=== PATIENT | male | born 1980 | race Caucasian/White ===

== ENCOUNTER 2021-03-08 09:15 | Emergency (ER) | payer MEDICAID ==
[~2021-03-08] VITALS: Ht 182.9 cm; Wt 109.1 kg
[~2021-03-08 09:15] MED LIST: HYDR-4383 PO
[2021-03-08 09:24] VITALS: BP 143/95
[2021-03-08] MEDS ORDERED: piperacillin/tazo 3.375gm/50ml 50 ML IV ONE (09:30)
[2021-03-08 10:39] LABS: BASOPHILS % (AUTO) 0.2 % (0-1); EOSINOPHILS % (AUTO) 0.2 % (0-6); HEMATOCRIT 38.1 % (42.0-52.0); LYMPHOCYTES # (AUTO) 0.6 X10'3 (1.1-4.8); LYMPHOCYTES % (AUTO) 4.9 % (21-51); MEAN CORPUSCULAR HEMOGLOBIN 29.5 PG (27.0-31.0); MEAN CORPUSCULAR VOLUME 86.6 FL (78-98); MEAN PLATELET VOLUME 7.6 FL (7.4-10.4); MONOCYTES # (AUTO) 0.8 X10'3 (0-0.9); MONOCYTES % (AUTO) 5.9 % (2-12); NEUTROPHILS # (AUTO) 11.8 X10'3 (1.8-7.7); NEUTROPHILS % (AUTO) 88.8 % (42-75); PLATELET COUNT 149 X10'3 (140-440); RED CELL DISTRIBUTION WIDTH 13.8 % (11.5-14.5); WHITE BLOOD COUNT 13.3 X10'3 (4.5-11.0)
[2021-03-08 10:53] LABS: ALANINE AMINOTRANSFERASE 36 U/L (12-78); ALBUMIN 2.4 G/DL (3.4-5.0); ALBUMIN/GLOBULIN RATIO 0.6 (1.1-1.5); ALKALINE PHOSPHATASE 137 IU/L (46-116); ANION GAP 12 (8-16); ASPARTATE AMINO TRANSFERASE 37 U/L (10-37); BILIRUBIN,TOTAL 0.8 MG/DL (0.1-1.0); BLOOD UREA NITROGEN 10 MG/DL (7-18); CALCIUM 8.2 MG/DL (8.5-10.1); CHLORIDE 100 MMOL/L (99-107); CREATININE 0.83 MG/DL (0.60-1.10); GLUCOSE 201 MG/DL (70-104); POTASSIUM 3.2 MMOL/L (3.5-5.1); SODIUM 136 MMOL/L (135-145); TOTAL CARBON DIOXIDE 23.9 MMOL/L (24-32); TOTAL PROTEIN 6.7 G/DL (6.4-8.2); eGFR > 90 ML/MIN
--- NOTE | 2021-03-08 11:00 | NUR ---
Pt is awake and alert. C/O reddness, edema, and severe pain to [place] GUO. Seen at [facility] 2 days ago and pt left AMA.
[2021-03-08] MEDS ORDERED: levoFLOXACIN 250mg tablet PO ONE (11:35)
[2021-03-08] MEDS ORDERED: LEVO500T89 PO (11:36)
[2021-03-08] MEDS ORDERED: HYDROcodone/acetaminophen 10/325mg tab PO ONE (11:45)
[2021-03-08] MEDS ORDERED: TETanus/Pertussis (Acell)/Diphther VAC/PF (Tdap-Adult) 0.5ml syringe IMVAC ONE (12:30)
== END 2021-03-08 12:36 | disposition home or self-care (01) ==
LOC: ER 09:16
DX: L03.116 Cellulitis of left lower limb (principal); F15.10 Other stimulant abuse, uncomplicated; I10 Essential (primary) hypertension; K21.9 Gastro-esophageal reflux disease without esophagitis; Z88.5 Allergy status to narcotic agent; Z88.8 Allergy status to other drugs, medicaments and biological substances
CPT/HCPCS: 36415; 80053; 83605; 84145; 85025; 87040; 90471; 90715; 96365; 99284; J2543

== ENCOUNTER → 2021-03-13 | Emergency (ER) | payer MEDICAID ==
[~2021-03-13] VITALS: Ht 182.9 cm; Wt 109.1 kg
[~2021-03-13] MED LIST changes: +LEVO500T89 PO
== END | disposition left against medical advice (07) ==
LOC: ER 21:23
DX: M79.662 Pain in left lower leg (principal); Z53.21 Procedure and treatment not carried out due to patient leaving prior to being seen by health care provider

== ENCOUNTER 2021-04-21 00:38 | Emergency (ER) | payer MEDICAID ==
[~2021-04-21] VITALS: Ht 182.9 cm; Wt 111.8 kg
[~2021-04-21 00:38] MED LIST changes: -LEVO500T89 PO
[2021-04-21] MEDS ORDERED: insulin regular, human 10 units/0.1 ml syringe IV ONE (01:00)
[2021-04-21] MEDS ORDERED: insulin regular, human 10 units/0.1 ml syringe SQ ONE (01:00)
[2021-04-21] MEDS ORDERED: normal saline 1000ML IV soln IVB ONE (01:00)
[2021-04-21 01:40] LABS: BASOPHILS # (AUTO) 0.1 X10'3 (0-0.2); BASOPHILS % (AUTO) 0.6 % (0-1); EOSINOPHILS # (AUTO) 0.1 X10'3 (0-0.9); EOSINOPHILS % (AUTO) 1.4 % (0-6); HEMATOCRIT 45.1 % (42.0-52.0); HEMOGLOBIN 15.2 g/dl (14.0-17.9); LYMPHOCYTES # (AUTO) 2.2 X10'3 (1.1-4.8); LYMPHOCYTES % (AUTO) 23.9 % (21-51); MEAN CORPUSCULAR HEMOGLOBIN 28.7 PG (27.0-31.0); MEAN CORPUSCULAR HGB CONC 33.7 g/dL (33.0-36.5); MONOCYTES # (AUTO) 0.5 X10'3 (0-0.9); MONOCYTES % (AUTO) 4.9 % (2-12); NEUTROPHILS # (AUTO) 6.4 X10'3 (1.8-7.7); NEUTROPHILS % (AUTO) 69.2 % (42-75); PLATELET COUNT 206 X10'3 (140-440); RED BLOOD COUNT 5.31 X10'6 (4.70-6.10); WHITE BLOOD COUNT 9.2 X10'3 (4.5-11.0)
[2021-04-21 01:55] LABS: HEMOGLOBIN A1C 10.1 % (4.5-6.2)
[2021-04-21 01:56] LABS: ALANINE AMINOTRANSFERASE 27 U/L (12-78); ALBUMIN 3.9 G/DL (3.4-5.0); ALBUMIN/GLOBULIN RATIO 0.9 (1.1-1.5); ALKALINE PHOSPHATASE 92 IU/L (46-116); ANION GAP 15 (8-16); ASPARTATE AMINO TRANSFERASE 17 U/L (10-37); BILIRUBIN,TOTAL 0.5 MG/DL (0.1-1.0); BLOOD UREA NITROGEN 16 MG/DL (7-18); BUN/CREATININE RATIO 11.8 (5.4-32.0); CALCIUM 8.8 MG/DL (8.5-10.1); CHLORIDE 95 MMOL/L (99-107); CREATININE 1.36 MG/DL (0.60-1.10); POTASSIUM 4.2 MMOL/L (3.5-5.1); SODIUM 131 MMOL/L (135-145); TOTAL CARBON DIOXIDE 21.3 MMOL/L (24-32); TOTAL PROTEIN 8.1 G/DL (6.4-8.2); eGFR 59 ML/MIN
[2021-04-21 02:00] LABS: GLUCOSE 655 MG/DL (70-104)
[2021-04-21 03:54] VITALS: BP 137/64
== END 2021-04-21 03:56 | disposition home or self-care (01) ==
LOC: ER 00:38
DX: E11.65 Type 2 diabetes mellitus with hyperglycemia (principal); I10 Essential (primary) hypertension; E11.9 Type 2 diabetes mellitus without complications; K21.9 Gastro-esophageal reflux disease without esophagitis; F15.90 Other stimulant use, unspecified, uncomplicated; Z86.19 Personal history of other infectious and parasitic diseases; Z88.5 Allergy status to narcotic agent; Z88.8 Allergy status to other drugs, medicaments and biological substances
CPT/HCPCS: 36415; 80053; 82948; 83036; 85025; 96372; 96374; 99284; J1815; J7030

== ENCOUNTER 2022-02-05 10:03 | Emergency (ER) | payer MEDICAID ==
[~2022-02-05] VITALS: Ht 182.9 cm; Wt 104.5 kg
[2022-02-05 10:28] VITALS: BP 112/79
== END 2022-02-05 12:58 | disposition left against medical advice (07) ==
LOC: ER 10:03
DX: S90.01XA Contusion of right ankle, initial encounter (principal); M25.561 Pain in right knee; I10 Essential (primary) hypertension; K21.9 Gastro-esophageal reflux disease without esophagitis; E11.9 Type 2 diabetes mellitus without complications; F15.20 Other stimulant dependence, uncomplicated; Z88.5 Allergy status to narcotic agent; Z88.8 Allergy status to other drugs, medicaments and biological substances; X50.1XXA Overexertion from prolonged static or awkward postures, initial encounter; Y93.89 Activity, other specified; Y92.89 Other specified places as the place of occurrence of the external cause; Y99.8 Other external cause status
CPT/HCPCS: 73564; 73610; 99284

== ENCOUNTER 2022-02-07 08:22 | Emergency (ER) | payer MEDICAID ==
[~2022-02-07] VITALS: Ht 182.9 cm; Wt 104.5 kg
[2022-02-07 09:36] VITALS: BP 139/73
[2022-02-07] MEDS ORDERED: HYDROcodone/acetaminophen 10/325mg tab PO ONE (11:15)
== END 2022-02-07 11:50 | disposition home or self-care (01) ==
LOC: ER 08:23
DX: M25.561 Pain in right knee (principal); M25.571 Pain in right ankle and joints of right foot; M79.601 Pain in right arm; I10 Essential (primary) hypertension; K21.9 Gastro-esophageal reflux disease without esophagitis; E11.9 Type 2 diabetes mellitus without complications; F17.200 Nicotine dependence, unspecified, uncomplicated; Z98.890 Other specified postprocedural states; Z72.89 Other problems related to lifestyle; Z88.5 Allergy status to narcotic agent; Z88.8 Allergy status to other drugs, medicaments and biological substances; Z79.899 Other long term (current) drug therapy
CPT/HCPCS: 73090; 73630; 99284; A6449

== ENCOUNTER 2022-09-07 05:13 | Day surgery (SDC) | payer MEDICAID ==
[~2022-09-07] VITALS: Ht 182.9 cm; Wt 86.9 kg
[2022-09-07] VITALS (10 sets, daily range): BP systolic 105–126; BP diastolic 65–91
[~2022-09-07 05:13] MED LIST changes: -HYDR-4383 PO; +LOSA100T57 PO; +METF-900 PO; +OMEP20CA16 PO; +OXYC-658 PO; +ringers solution, lacted 1,000 ML IV SCH
[2022-09-07] MEDS ORDERED: cefazolin 2gm/D5W 100mL 100 ML IV ONE (05:30)
[2022-09-07] MEDS ORDERED: famotidine 20mg tablet PO ONE (05:30)
[2022-09-07] MEDS ORDERED: BUPIVAcaine/PF 5 mg/ml 10ml ONE (06:40)
[2022-09-07] MEDS ORDERED: LIDOcaine 1% W/epiNEPHrine 1:100,000 20ml vial ONE (06:41)
[2022-09-07] MEDS ORDERED: ketorolac trometh. 30mg/ml inj. ONE (06:41)
[2022-09-07] MEDS ORDERED: LIDOcaine 1% 30ml preserv. free vial ONE (06:42)
[2022-09-07 06:59] LABS: BASOPHILS % (AUTO) 0.2 % (0-1); EOSINOPHILS # (AUTO) 0.1 X10'3 (0-0.9); EOSINOPHILS % (AUTO) 1.6 % (0-6); LYMPHOCYTES # (AUTO) 0.9 X10'3 (1.1-4.8); LYMPHOCYTES % (AUTO) 12.3 % (21-51); MEAN CORPUSCULAR HEMOGLOBIN 30.3 PG (27.0-31.0); MEAN CORPUSCULAR HGB CONC 33.6 g/dL (33.0-36.5); MEAN CORPUSCULAR VOLUME 90.3 FL (78-98); MEAN PLATELET VOLUME 8.2 FL (7.4-10.4); MONOCYTES # (AUTO) 0.4 X10'3 (0-0.9); MONOCYTES % (AUTO) 5.4 % (2-12); NEUTROPHILS # (AUTO) 5.6 X10'3 (1.8-7.7); NEUTROPHILS % (AUTO) 80.5 % (42-75); PRE OP HEMATOCRIT 34.1 % (42.0-52.0); PRE OP HEMOGLOBIN 11.5 g/dL (14.0-17.9); PRE OP PLATELET COUNT 112 X10'3 (140-440); RED BLOOD COUNT 3.78 X10'6 (4.70-6.10); RED CELL DISTRIBUTION WIDTH 14.8 % (11.5-14.5)
[2022-09-07 07:06] LABS: ALBUMIN 3.3 G/DL (3.4-5.0); ALBUMIN/GLOBULIN RATIO 0.7 (1.1-1.5); ALKALINE PHOSPHATASE 285 IU/L (46-116); BLOOD UREA NITROGEN 9 MG/DL (7-18); BUN/CREATININE RATIO 8.9 (10.0-20.0); CALCIUM 9.2 MG/DL (8.5-10.1); CHLORIDE 96 MMOL/L (99-107); CREATININE 1.01 MG/DL (0.60-1.10); PRE OP ALT 182 U/L (30-65); PRE OP ANION GAP 11 (8-16); PRE OP BILIRUB, TOTAL 1.2 MG/DL (0.0-1.0); PRE OP GLUCOSE 153 MG/DL (70-104); PRE OP POTASSIUM 3.5 MMOL/L (3.4-5.1); PRE OP SODIUM 131 MMOL/L (135-145); TOTAL CARBON DIOXIDE 23.9 MMOL/L (24-32); TOTAL PROTEIN 7.8 G/DL (6.4-8.2); eGFR 82 ML/MIN
[2022-09-07 07:08] LABS: PRE OP AST 296 U/L (10-37)
[2022-09-07] MEDS ORDERED: fentaNYL/PF 50MCG/1 ML 2ML syringe ONE ×2 (07:19→07:47)
[2022-09-07] MEDS ORDERED: meperidine/PF 25mg/ml syringe IV PRN ×2 (07:25)
[2022-09-07] MEDS ORDERED: ondansetron/PF 4mg/2ml inj IV PRN (07:25)
[2022-09-07] MEDS ORDERED: HYDROmorphone/PF 0.2 MG/ML SYRINGE IV PRN ×2 (07:25)
[2022-09-07] MEDS ORDERED: ringers solution, lacted 1,000 ML IV SCH (07:25)
[2022-09-07] MEDS ORDERED: rocuronium 10mg/ml inj IV ONE (07:55)
[2022-09-07] MEDS ORDERED: ondansetron/PF 4mg/2ml inj ONE (07:55)
[2022-09-07] MEDS ORDERED: propofol inj 20 ML IV ONE (07:55)
[2022-09-07] MEDS ORDERED: LIDOcaine 2% (20mg/ml) 5ml vial ONE (07:55)
[2022-09-07] MEDS ORDERED: dexamethasone sod phosphate 4mg/ml inj. ONE (07:55)
[2022-09-07] MEDS ORDERED: meperidine/PF 25mg/ml syringe ONE (08:39)
--- NOTE | 2022-09-07 08:45 | NUR ---
Received from OR via [facility] , accompanied by Anesthesiologist DR LESTER and report given by Anesthesiolgist. PT PLACED ON MONITOR, S/P RIGHT KNEE SCOPE, AWAKE, GENERAL ANESTH, DR GAN INJECTED LOCAL ANESTH TO RIGHT KNEE AREA, PT HAS GOOD PEDAL PULSES BILAT, RENDON, GOOD CAP REFILL TO RIGHT FOOT, DENIES ANY PAIN OR NAUSEA WILL CONTINUE TO ASSESS.
[2022-09-07] MEDS ORDERED: HYDROcodone/acetaminophen 10/325mg tab PO PRN (08:50)
[2022-09-07] MEDS ORDERED: oxyCODONE IR 5mg (immed. release) tablet PO PRN ×2 (09:35→09:40)
== END 2022-09-07 10:15 | disposition home or self-care (01) ==
LOC: PAS 05:13
PROVIDERS: ATTEND Orthopaedic Surgery
DX: S83.281A Other tear of lateral meniscus, current injury, right knee, initial encounter (principal); S83.241A Other tear of medial meniscus, current injury, right knee, initial encounter; M17.31 Unilateral post-traumatic osteoarthritis, right knee; M94.261 Chondromalacia, right knee; E11.9 Type 2 diabetes mellitus without complications; K21.9 Gastro-esophageal reflux disease without esophagitis; I10 Essential (primary) hypertension; Y93.89 Activity, other specified; Y92.89 Other specified places as the place of occurrence of the external cause; Y99.8 Other external cause status; Z79.899 Other long term (current) drug therapy; X58.XXXA Exposure to other specified factors, initial encounter; Z98.890 Other specified postprocedural states; Z88.6 Allergy status to analgesic agent; Z88.8 Allergy status to other drugs, medicaments and biological substances; Z87.891 Personal history of nicotine dependence
CPT/HCPCS: 29880; 36415; 80053; 82948; 85025; J0690; J1100; J1885; J2175; J2405; J2704; J3010; J3490; J7120; Z7506; Z7508; Z7512; A4215; A4618; A6449; A7000

== ENCOUNTER 2024-02-14 07:30 | Inpatient (IN) | payer MEDICAID ==
[2024-02-07 14:06] LABS: BASOPHILS # (AUTO) 0.1 X10'3 (0-0.2); BASOPHILS % (AUTO) 1.2 % (0-1); EOSINOPHILS # (AUTO) 0.2 X10'3 (0-0.9); EOSINOPHILS % (AUTO) 3.5 % (0-6); LYMPHOCYTES # (AUTO) 1.9 X10'3 (1.1-4.8); LYMPHOCYTES % (AUTO) 37.5 % (21-51); MEAN CORPUSCULAR HEMOGLOBIN 28.5 PG (27.0-31.0); MEAN CORPUSCULAR HGB CONC 32.9 g/dL (33.0-36.5); MEAN CORPUSCULAR VOLUME 86.5 FL (78-98); MEAN PLATELET VOLUME 6.4 FL (7.4-10.4); MONOCYTES # (AUTO) 0.5 X10'3 (0-0.9); MONOCYTES % (AUTO) 9.7 % (2-12); NEUTROPHILS # (AUTO) 2.5 X10'3 (1.8-7.7); NEUTROPHILS % (AUTO) 48.1 % (42-75); PRE OP HEMATOCRIT 43.3 % (42.0-52.0); PRE OP HEMOGLOBIN 14.3 g/dL (14.0-17.9); PRE OP PLATELET COUNT 151 X10'3 (140-440); PRE OP WHITE BLOOD COUNT 5.2 10'3 (4.8-10.8)
[2024-02-07 14:29] LABS: ALBUMIN 3.1 G/DL (3.4-5.0); ALBUMIN/GLOBULIN RATIO 0.7 (1.1-1.5); ALKALINE PHOSPHATASE 83 IU/L (46-116); BLOOD UREA NITROGEN 16 MG/DL (7-18); BUN/CREATININE RATIO 16.5 (10.0-20.0); CALCIUM 8.8 MG/DL (8.5-10.1); CHLORIDE 105 MMOL/L (99-107); CREATININE 0.97 MG/DL (0.60-1.10); PRE OP ALT 51 U/L (30-65); PRE OP ANION GAP 9 (8-16); PRE OP AST 56 U/L (10-37); PRE OP BILIRUB, TOTAL 0.4 MG/DL (0.0-1.0); PRE OP GLUCOSE 139 MG/DL (70-104); PRE OP POTASSIUM 4.2 MMOL/L (3.4-5.1); PRE OP SODIUM 140 MMOL/L (135-145); TOTAL CARBON DIOXIDE 26.1 MMOL/L (24-32); TOTAL PROTEIN 7.3 G/DL (6.4-8.2); eGFR 85 ML/MIN
[~2024-02-14] VITALS: Ht 182.9 cm; Wt 86.2 kg
[2024-02-14] VITALS (27 sets, daily range): BP systolic 115–173; BP diastolic 76–119; PULSE 76–87; RESP 7–20; TEMP 97.3–98.8; O2SAT 95–100
[~2024-02-14 07:30] MED LIST changes: +LORA10CA PO; -LOSA100T57 PO; +LOSA100T58 PO; -ringers solution, lacted 1,000 ML IV SCH
[2024-02-14] MEDS: vancomycin 1,500 MG in NS 300ml IV soln IV ONE (08:00)
[2024-02-14] MEDS: cefazolin 2gm/D5W 100mL 100 ML IV ONE (08:00)
[2024-02-14] MEDS: tranexamic acid 650mg tablet PO ONE (08:00)
[2024-02-14] MEDS: famotidine 20mg tablet PO ONE (08:01)
[2024-02-14] MEDS ORDERED: HYDROmorphone 1 mg/ml syringe ONE ×2 (08:37)
[2024-02-14] MEDS ORDERED: MIDAZolam 1mg/ml 10ml vial ONE (08:37)
[2024-02-14] MEDS ORDERED: ondansetron/PF 4mg/2ml inj IV PRN ×2 (09:05→10:55)
[2024-02-14] MEDS ORDERED: meperidine/PF 25mg/ml syringe IV PRN ×2 (09:05)
[2024-02-14] MEDS ORDERED: hydrALAZINE 20mg/ml inj. IV PRN (09:05)
[2024-02-14] MEDS ORDERED: labetalol 20mg/4ml (5mg/ml) syringe IV PRN ×2 (09:05→09:45)
[2024-02-14] MEDS ORDERED: HYDROmorphone/PF 0.2 MG/ML SYRINGE IV PRN ×2 (09:05)
[2024-02-14] MEDS: ROPIVAcaine 0.5% (5mg/ml) 30ml vial IJ ONE (09:32)
[2024-02-14] MEDS ORDERED: acetaminophen 325mg tablet PO PRN (10:55)
[2024-02-14] MEDS ORDERED: HYDROmorphone inj. 0.5 MG/0.5 ML DISP.SYRIN IV PRN (10:55)
[2024-02-14] MEDS ORDERED: bisacodyl 10mg suppository rectal RC PRN (10:55)
[2024-02-14] MEDS ORDERED: naloxone 0.4 mg/ml inj IV PRN (10:55)
[2024-02-14] MEDS ORDERED: diphenhydrAMINE 25mg capsule PO PRN ×2 (10:55)
[2024-02-14] MEDS ORDERED: oxyCODONE IR 5mg (immed. release) tablet PO PRN (10:55)
[2024-02-14] MEDS ORDERED: magnesium hydroxide 30ml (MOM) UD suspension PO PRN (10:55)
[2024-02-14] MEDS ORDERED: pantoprazole 40mg Tablet.DR PO PRN (10:55)
[2024-02-14] MEDS: ringers solution, lacted 1,000 ML IV SCH ×2 (13:12→14:51)
[2024-02-14] MEDS: acetaminophen 325mg tablet PO SCH (14:00)
[2024-02-14] MEDS: potassium cl 20mEq in 1/2 NS 1,000 ML IV SCH (14:49)
[2024-02-14] MEDS: BUPIVAcaine/PF 5 mg/ml 10ml ONE (14:50)
[2024-02-14] MEDS: tetracaine 1% (10mg/ml) pres. free inj. ONE (14:50)
[2024-02-14] MEDS: BUPIVACAINE liposomal/PF 13.3 MG/ML vial IM ONE (14:50)
[2024-02-14] MEDS: mineral oil 10ml sterile, topical TP ONE ×2 (14:50→14:51)
[2024-02-14] MEDS: ROPIVAcaine 0.5% (5mg/ml) 30ml vial ONE ×2 (14:51)
[2024-02-14] MEDS: BUPIVACAINE/MELOXICAM 14 ML VIAL IL ONE (14:51)
[2024-02-14] MEDS: ceFAZolin/D5W- 1GM premix 50 ML IV SCH (15:32)
[2024-02-14] MEDS: oxyCODONE IR 5mg (immed. release) tablet PO PRN (15:38)
[2024-02-14] MEDS: HYDROmorphone 1 mg/ml syringe IV PRN (17:21)
[2024-02-14] MEDS: vancomycin/NS 1 GM ADD-VANTAGE 250 ML IV SCH (19:24)
[2024-02-14] MEDS: sennosides 8.6mg tablet PO SCH (21:00)
[2024-02-15 02:00] VITALS: BP 100/63; PULSE 85; RESP 16; TEMP 98.2; O2SAT 99
[2024-02-15 06:00] VITALS: BP 115/59; PULSE 66; RESP 18; TEMP 96.4; O2SAT 98
[2024-02-15 06:35] LABS: BASOPHILS % (AUTO) 0.6 % (0-1); EOSINOPHILS # (AUTO) 0.1 X10'3 (0-0.9); EOSINOPHILS % (AUTO) 1.8 % (0-6); HEMATOCRIT 31.3 % (42.0-52.0); HEMOGLOBIN 10.2 g/dl (14.0-17.9); LYMPHOCYTES # (AUTO) 1.7 X10'3 (1.1-4.8); LYMPHOCYTES % (AUTO) 29.5 % (21-51); MEAN CORPUSCULAR HEMOGLOBIN 28.5 PG (27.0-31.0); MEAN CORPUSCULAR HGB CONC 32.6 g/dL (33.0-36.5); MEAN CORPUSCULAR VOLUME 87.2 FL (78-98); MONOCYTES # (AUTO) 0.9 X10'3 (0-0.9); MONOCYTES % (AUTO) 15.7 % (2-12); NEUTROPHILS % (AUTO) 52.4 % (42-75); PLATELET COUNT 143 X10'3 (140-440); RED BLOOD COUNT 3.59 X10'6 (4.70-6.10); RED CELL DISTRIBUTION WIDTH 13.7 % (11.5-14.5); WHITE BLOOD COUNT 5.7 X10'3 (4.5-11.0)
[2024-02-15 06:36] LABS: ANION GAP 4 (8-16); CHLORIDE 105 MMOL/L (99-107); POTASSIUM 4.2 MMOL/L (3.5-5.1); SODIUM 137 MMOL/L (135-145); TOTAL CARBON DIOXIDE 27.9 MMOL/L (24-32)
[2024-02-15 08:00] LABS: PLATELET ESTIMATE NORMAL; TOTAL CELLS COUNTED 100
[2024-02-15] MEDS: metFORMIN 500mg tablet PO SCH (08:00)
[2024-02-15] MEDS: aspirin 325mg tablet PO SCH (09:37)
[2024-02-15] MEDS: losartan 50mg tablet PO SCH (09:38)
[2024-02-15] MEDS: loratadine 10mg tablet PO SCH (09:38)
[2024-02-15 11:30] VITALS: BP 113/63; PULSE 87; RESP 16; TEMP 97.9; O2SAT 99
[2024-02-15] MEDS ORDERED: celeCOXIB 100mg capsule PO SCH (20:00)
[2024-02-16] MEDS ORDERED: acetaminophen 325mg tablet PO PRN (18:20)
== END 2024-02-15 16:32 | disposition home or self-care (01) | DRG 326 ==
LOC: PAS IN 07:38 → ORTHO 4S 14:30
PROVIDERS: ADMIT Orthopaedic Surgery; ATTEND Orthopaedic Surgery
PROC: 8E0YXBZ Computer Assisted Procedure of Lower Extremity (ICD-10-PCS; 2024-02-14)
PROC: 8E0Y0CZ Robotic Assisted Procedure of Lower Extremity, Open Approach (ICD-10-PCS; 2024-02-14)
PROC: 3E0T3BZ Introduction of Anesthetic Agent into Peripheral Nerves and Plexi, Percutaneous Approach (ICD-10-PCS; 2024-02-14)
PROC: 0SRD0JZ Replacement of Left Knee Joint with Synthetic Substitute, Open Approach (ICD-10-PCS; principal; 2024-02-14 08:30)
DX: M17.31 Unilateral post-traumatic osteoarthritis, right knee (principal); F32.A Depression, unspecified; G43.909 Migraine, unspecified, not intractable, without status migrainosus; K21.9 Gastro-esophageal reflux disease without esophagitis; F41.9 Anxiety disorder, unspecified; I10 Essential (primary) hypertension; Z88.5 Allergy status to narcotic agent; Z79.899 Other long term (current) drug therapy; Z88.8 Allergy status to other drugs, medicaments and biological substances
CPT/HCPCS: 36415; 80051; 80053; 82948; 85007; 85025; 87081; 97110; 97116; 97162; A4215; A6258; A7000; C1776; C9290; G0378; J0665; J0690; J1170; J2250; J2795; J3370; J3480; J3490; J7120